=== PATIENT | female | born 1950 | race Asian ===

== ENCOUNTER 2016-09-20 22:27 | Emergency (ER) | payer SELFPAY ==
[2016-09-20 22:37] VITALS: BP 133/90; PULSE 100; TEMP 97; BMI 23.4
[2016-09-20] MEDS ORDERED: SODIUM CHLORIDE 0.9% 1000 ML INFUS.BAG IV ONE (23:27)
[2016-09-20] MEDS ORDERED: ONDANSETRON 4 MG/2 ML VIAL IVPUSH ONE (23:27)
[2016-09-20] MEDS ORDERED: FAMOTIDINE 20 MG/50 ML IVPB 50 ML IVPB ONE ×2 (23:28→23:44)
--- NOTE | 2016-09-20 23:42 | PDOC ---
History of Present Illness - General Chief Complaint: Vomiting/Diarrhea Stated Complaint: VOMITING/DIARRHEA Time Seen by Provider: 09/20/16 22:55 - History of Present Illness Initial Comments: 09/20/16 23:28 CHIEF COMPLAINT: vomiting, diarrhea HISTORY OF PRESENT ILLNESS: 66 yo F with hx of HTN presents to ED with vomiting and diarrhea x 3 hours. Patient and patient family state that the believe she "ate something bad earlier." Patient reports eating some sort of cucumber, tofu, and beef stew and a few hours later she began vomiting persistently and having diarrhea. She reports at least 5 episodes of vomiting and "too many" episodes of diarrhea. No recent travel or sick contacts. PAST MEDICAL HISTORY: HTN SOCIAL HISTORY: Denies tobacco, alcohol, illicit drug use. SURGICAL HISTORY: Denies ALLERGIES: No known drug allergies REVIEW OF SYSTEMS General/Constitutional: Denies fever or chills. Denies weakness, weight change. HEENT: Denies change in vision. Denies ear pain or discharge. Denies sore throat. Cardiovascular: Denies chest pain or shortness of breath. Respiratory: Denies cough, wheezing, or hemoptysis. Gastrointestinal: Vomiting, diarrhea. Denies constipation. Denies rectal bleeding. Genitourinary: Denies dysuria, frequency, or change in urination. Musculoskeletal: Denies joint or muscle swelling or pain. Denies neck or back pain. Skin and breasts: Denies rash or easy bruising. PHYSICAL EXAM General Appearance: Well-appearing, appropriately dressed. No apparent distress , no intoxication. HEENT: EOMI, PERRLA. Respiratory/Chest: Lungs CTAB. Cardiovascular: RRR. S1, S2. Gastrointestinal/Abdominal: Hyperactive bowel sounds. Abdomen soft, non- distended. No tenderness or rebound tenderness. No organomegaly, pulsatile mass, guarding, hernia, hepatomegaly, splenomegaly. Musculoskeletal/Extremities: Normal inspection. FROM of all extremities, normal capillary refill. Pelvis Stable. No CVA tenderness. No tenderness to extremities, pedal edema, swelling, erythema or deformity. Integumentary: Appropriate color, dry, warm. No cyanosis, erythema, jaundice or rash Neurologic: janitor caretaker II-XII intact. Fully oriented, alert. Appropriate mood/affect. Motor strength 5/5. No appreciable EOM palsy, facial droop or sensory deficit. Past History - Past Medical History Allergies/Adverse Reactions: Allergies Allergy/AdvReac Type Severity Reaction Status Date / Time No Known Allergies Allergy Verified 09/20/16 22:32 Home Medications: Ambulatory Orders Loperamide HCl [Anti-Diarrheal] 2 mg PO QID PRN #100 liquid 09/21/16 Ondansetron [Zofran *Odt*] 8 mg SL TID PRN #12 od.tablet 09/21/16 HTN: Yes - Psycho/Social/Smoking Cessation Hx Suicidal Ideation: No Smoking History: Never smoked *Physical Exam - Vital Signs Last Vital Signs Temp Pulse Resp BP Pulse Ox 97 F L 100 H 20 133/90 100 09/20/16 22:29 09/20/16 22:29 09/20/16 22:29 09/20/16 22:29 09/20/16 22:29 ED Treatment Course - LABORATORY CBC & Chemistry Diagram: 09/20/16 23:45 09/20/16 23:45 Medical Decision Making - Medical Decision Making 09/20/16 23:42 66 yo F with hx of HTN presents to ED with vomiting and diarrhea x 3 hours. -CBC, CMP -IVF, Pepcid, Zofran *DC/Admit/Observation/Transfer Diagnosis at time of Disposition: Acute gastroenteritis - Discharge Dispostion Disposition: HOME Condition at time of disposition: Stable Admit: No - Prescriptions Prescriptions: Loperamide HCl [Anti-Diarrheal] 2 mg PO QID PRN #100 liquid PRN Reason: Diarrhea Ondansetron [Zofran *Odt*] 8 mg SL TID PRN #12 od.tablet PRN Reason: Nausea And/Or Vomiting - Referrals Referrals: Juan Conde MD [Staff Physician] - - Patient Instructions Printed Discharge Instructions: DI for Viral Gastroenteritis -- Adult Additional Instructions: Please take medication as prescribed. Make sure you drink plenty of fluids to stay hydrated. If you develop fever, persistent vomiting, severe abdominal pain , chest pain, shortness of breath, or any new or worsening symptoms, please return to the ER.
[2016-09-20] MEDS ORDERED: ONDANSETRON 4 MG/2 ML VIAL ONE (23:43)
--- NOTE | 2016-09-20 23:55 | PDOC ---
*Physical Exam - Vital Signs Last Vital Signs Temp Pulse Resp BP Pulse Ox 97 F L 100 H 20 133/90 100 09/20/16 22:29 09/20/16 22:29 09/20/16 22:29 09/20/16 22:29 09/20/16 22:29 ED Treatment Course - LABORATORY CBC & Chemistry Diagram: 09/20/16 23:45 09/20/16 23:45 - Medications Given in the ED: ED Medications Discontinued Medications Generic Name Dose Route Start Last Admin Trade Name Freq PRN Reason Stop Dose Admin Ondansetron HCl 4 mg 09/20/16 23:27 09/20/16 23:41 Zofran Injection IVPUSH 09/20/16 23:28 4 mg ONCE ONE Administration Sodium Chloride 1,000 ml 09/20/16 23:27 09/20/16 23:41 Normal Saline - IV 09/20/16 23:28 1,000 ml ONCE ONE Administration Medical Decision Making - Medical Decision Making 09/20/16 23:55 agree with care from [facility] *DC/Admit/Observation/Transfer Diagnosis at time of Disposition: Acute gastroenteritis - Prescriptions Prescriptions: Loperamide HCl [Anti-Diarrheal] 2 mg PO QID PRN #100 liquid PRN Reason: Diarrhea Ondansetron [Zofran *Odt*] 8 mg SL TID PRN #12 od.tablet PRN Reason: Nausea And/Or Vomiting - Referrals Referrals: Juan Conde MD [Staff Physician] - - Patient Instructions Printed Discharge Instructions: DI for Viral Gastroenteritis -- Adult Additional Instructions: Please take medication as prescribed. Make sure you drink plenty of fluids to stay hydrated. If you develop fever, persistent vomiting, severe abdominal pain , chest pain, shortness of breath, or any new or worsening symptoms, please return to the ER.
[2016-09-21 00:09] LABS: BASOPHIL 0.1 % (0-2.0); EOSINOPHIL 0.5 % (0-4.5); MCH 29.2 pg (25.7-33.7); MCHC 32.5 g/dl (32.0-36.0); MEAN CELL VOLUME 89.8 fl (80-96); MEAN PLT VOLUME 8.2 fl (7.5-11.1); NEUTROPHILS 89.3 % (42.8-82.8); PLATELET COUNT 261 K/MM3 (134-434); RDW 12.7 % (11.6-15.6); WHITE BLOOD COUNT 16.6 K/mm3 (4.0-10.0)
[2016-09-21 00:36] LABS: ALBUMIN 4.2 g/dl (3.4-5.0); ALK PHOS 142 U/L (45-117); ANION GAP 11 (8-16); BILIRUBIN,TOTAL 0.5 mg/dL (0.2-1.0); CO2 26 mmol/L (21-32); CREATININE 1.1 mg/dL (0.55-1.02); GLUCOSE,RANDOM 130 mg/dL (74-106); SGOT/AST 16 U/L (15-37); SGPT/ALT 29 U/L (12-78); TOT PROT 7.6 g/dl (6.4-8.2)
== END 2016-09-21 00:55 | disposition home or self-care (01) ==
LOC: JER 22:27
PROC: 3E033GC Introduction of Other Therapeutic Substance into Peripheral Vein, Percutaneous Approach (ICD-10-PCS; principal; 2016-09-20)
DX: K52.9 Noninfective gastroenteritis and colitis, unspecified (principal); I10 Essential (primary) hypertension
CPT/HCPCS: 36415; 80053; 85025; 99283-25